=== PATIENT | female | born 1935 | race African-American/Black ===

== ENCOUNTER 2019-03-26 10:50 | Emergency (ER) | payer OTHER, MEDICARE ==
[~2019-03-26] VITALS: Ht 165.1 cm; Wt 60.0 kg
[2019-03-26 11:16] VITALS: BP 155/88
[2019-03-26] MEDS ORDERED: ACETAMINOPHEN 325MG TABLET PO ONE (12:30)
== END 2019-03-26 12:50 | disposition home or self-care (01) ==
LOC: ER 10:50
DX: M79.18 Myalgia, other site (principal); I10 Essential (primary) hypertension; V43.52XA Car driver injured in collision with other type car in traffic accident, initial encounter; Y93.89 Activity, other specified; Y92.488 Other paved roadways as the place of occurrence of the external cause
CPT/HCPCS: 99282

== ENCOUNTER 2019-08-09 14:04 | Emergency (ER) | payer MEDICARE, BC ==
[~2019-08-09] VITALS: Ht 165.1 cm; Wt 72.0 kg
[2019-08-09] MEDS ORDERED: IPRATROPIUM BROMIDE (0.02%) 0.5MG/2.5ML NEB HHN STA (21:38)
[2019-08-09] MEDS ORDERED: METHYLPREDNISOLONE SOD SUCC 125 MG/2 ML VIAL IV STA (21:38)
[2019-08-09] MEDS: ALBUTEROL (0.083%) 2.5MG/3ML NEB HHN SCH ×2 (22:00→22:30)
[2019-08-09 22:08] LABS: BASOPHILS % 0.8 % (0.0-2.0); EOSINOPHILS % 5.4 % (0.0-5.0); HEMATOCRIT. 41.7 % (36.0-48.0); HEMOGLOBIN. 13.9 g/dL (12.0-16.0); MEAN CORPUSCULAR HEMOGLOBIN 26.6 pg (28.0-32.0); MEAN CORPUSCULAR VOLUME 79.7 fL (81.0-99.0); MEAN PLATELET VOLUME 8.4 fl (7.4-10.4); MONOCYTES % 13.7 % (2.0-8.0); NEUTROPHILS % 47.1 % (40.0-76.0); PLATELET 235 x1000/uL (130-400); RED BLOOD CELL COUNT 5.23 mill/uL (4.2-5.4); RED CELL DISTRIBUTION WIDTH 13.9 % (11.6-14.6)
[2019-08-09 22:16] LABS: CHLORIDE 101 mEq/L (98-107)
[2019-08-09 23:00] VITALS: BP 148/80
== END 2019-08-09 23:39 | disposition home or self-care (01) ==
LOC: ER 14:17
DX: J45.901 Unspecified asthma with (acute) exacerbation (principal); I10 Essential (primary) hypertension
CPT/HCPCS: 36415; 71045; 80053; 83880; 84484; 85025; 94640; 96374; 99284; J2930; J7611